=== PATIENT | male | born 1990 | race Caucasian/White ===

== ENCOUNTER → 2020-01-14 | Outpatient (CLI) | payer BC ==
[~2020-01-14] MED LIST: HYDR25T; KEFLEX500 MG PO; LISINOPRIL20 MG PO
== END | disposition home or self-care (01) ==
LOC: COVID19 10:13
PROVIDERS: ATTEND Internal Medicine
DX: Z20.828 Contact with and (suspected) exposure to other viral communicable diseases (principal)